=== PATIENT | female | born 2000 | race Caucasian/White ===

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

== ENCOUNTER 2024-02-01 09:28 | Outpatient (CLI) | payer BC, SELFPAY ==
--- NOTE | 2024-02-01 09:15 | RT.EKG_ITS ---
APPROVED REPORT Exam: Resting ECG Reason for Exam: New patient Patient Location: O HR:64 bpm ECG Measurements Heart Rate 64 AXIS ID 168 P 25 QRSd 94 QRS 13 QT 411 T 19 QTc 424 Conclusion Sinus rhythm...normal P axis, V-rate 50- 99 Baseline wander in lead(s) V4 Normal Electrocardiogram
== END 2024-02-01 09:29 | disposition home or self-care (01) ==
LOC: DI.CM 09:29
PROVIDERS: PCP Nurse Practitioner Family; Visit Provider Nurse Practitioner Family
DX: F90.8 Attention-deficit hyperactivity disorder, other type (principal)
CPT/HCPCS: 93010

== ENCOUNTER 2024-02-01 12:05 | Outpatient (REF) | payer BC, SELFPAY ==
--- NOTE | 2024-02-01 09:00 | PAPFT_PTH ---
PATIENT: Parisa Price LOC: [facility] U#:[id number] AGE/SX: 24/F ROOM: RE02/01/[address]: Mauricio Atwood DNP : 2000 BED: DIS: 02/01/2024 SPEC #: [id number] RECD: 02/01/24 13:43 STATUS: TYRONE QUINONEZ #: [id number] IVANA: 02/01/24 09:[address]: Mauricio Grigsby DEPT: [facility] Cytology RECD BY: Akila Gaitan Tissues: 1 - CX/ENDOCX FOR PAP SMEARS Procedures: PAP THIN PREP/[facility] Screening Comments: [id number]
[2024-02-01 21:12] LABS: ALT 38 U/L (14-59); AST 14 U/L (15-37); Albumin 4.1 g/dL (3.4-5.0); Alkaline Phosphatase 63 U/L (46-116); Anion Gap 11.7 mmol/L (3-11); BUN 7 mg/dL (7-18); CO2 24.3 mmol/L (21.0-32.0); CREATININE 0.8 mg/dL (0.55-1.02); Calcium 8.8 mg/dL (8.5-10.1); Chloride 104 mmol/L (98-107); Estimated GFR 106.77 (mL/min/1.73m2); Glucose 95 mg/dL (74-106); Potassium 4.1 mmol/L (3.5-5.1); Sodium 140 mmol/L (136-145); Total Protein 7.5 g/dL (6.4-8.2)
[2024-02-03 09:07] LABS: HIV-1/2 Ag & Ab Screen Negative (Negative)
[2024-02-03 09:18] LABS: Hepatitis C Ab w Rflx HCV PCR Negative (Negative)
== END 2024-02-01 12:06 | disposition home or self-care (01) ==
LOC: LBN 12:05
PROVIDERS: PCP Nurse Practitioner Family; Visit Provider Nurse Practitioner Family
DX: R53.83 Other fatigue (principal); F90.9 Attention-deficit hyperactivity disorder, unspecified type; Z13.1 Encounter for screening for diabetes mellitus; Z11.59 Encounter for screening for other viral diseases; Z11.4 Encounter for screening for human immunodeficiency virus [HIV]; Z12.4 Encounter for screening for malignant neoplasm of cervix
CPT/HCPCS: 80053; 86803; 87389; 88142

== ENCOUNTER 2024-04-03 11:41 | Outpatient (REF) | payer BC, SELFPAY ==
[2024-04-04 14:27] LABS: Chlamydia Result Negative (Negative); GC Result Negative (Negative)
== END 2024-04-03 11:42 | disposition home or self-care (01) ==
LOC: LBN 11:41
PROVIDERS: PCP Nurse Practitioner Family; Visit Provider Physician Assistant
DX: J02.9 Acute pharyngitis, unspecified (principal); Z11.3 Encounter for screening for infections with a predominantly sexual mode of transmission
CPT/HCPCS: 87491; 87591; 87070

== ENCOUNTER 2024-04-10 22:03 | Outpatient (REF) | payer BC, SELFPAY | END 2024-04-10 22:04 | disposition home or self-care (01) | LOC: LBN 22:03 | PROVIDERS: PCP Nurse Practitioner Family; Visit Provider Nurse Practitioner Family | DX: J03.90 Acute tonsillitis, unspecified (principal); J02.9 Acute pharyngitis, unspecified | CPT/HCPCS: 87070 ==

== ENCOUNTER 2024-06-15 15:58 | Outpatient (REF) | payer BC, SELFPAY ==
[2024-06-17 09:18] LABS: HIV-1/2 Ag & Ab Screen Negative (Negative)
[2024-06-18 10:36] LABS: Hepatitis A Antibody IgM Negative (Negative); Hepatitis B Core Antibody Negative (Negative); Hepatitis B surface Ag Negative (Negative); Hepatitis C Ab w Rflx HCV PCR Negative (Negative)
[2024-06-18 11:07] LABS: Syphilis Serology (RPR) Negative (Negative)
[2024-06-18 12:04] LABS: Chlamydia Result Negative (Negative); GC Result Negative (Negative)
== END 2024-06-15 15:59 | disposition home or self-care (01) ==
LOC: NCHCN 15:58
PROVIDERS: PCP Nurse Practitioner Family; Visit Provider Physician Assistant
DX: Z11.3 Encounter for screening for infections with a predominantly sexual mode of transmission (principal)
CPT/HCPCS: 86704; 86709; 86803; 87340; 87389; 87491; 87591; 86592; 87480; 87510; 87660

== ENCOUNTER 2024-06-16 12:57 | Outpatient (REF) | payer BC, SELFPAY | END 2024-06-16 12:58 | disposition home or self-care (01) | LOC: LBN 12:57 | PROVIDERS: PCP Nurse Practitioner Family; Visit Provider Physician Assistant | DX: A64 Unspecified sexually transmitted disease (principal); Z11.3 Encounter for screening for infections with a predominantly sexual mode of transmission | CPT/HCPCS: 87480; 87510; 87660 ==

== ENCOUNTER 2025-01-25 11:26 | Outpatient (REF) | payer BC, SELFPAY | END 2025-01-25 11:27 | disposition home or self-care (01) | LOC: LBN 11:26 | PROVIDERS: PCP Nurse Practitioner Family; Visit Provider Physician Assistant | DX: L72.9 Follicular cyst of the skin and subcutaneous tissue, unspecified (principal) | CPT/HCPCS: 87070; 87205 ==

== ENCOUNTER 2025-02-14 21:42 | Outpatient (REF) | payer BC, SELFPAY ==
[2025-02-15 17:17] LABS: HIV-1/2 Ag & Ab Screen Negative (Negative)
[2025-02-15 17:20] LABS: Hepatitis C Ab w Rflx HCV PCR Negative (Negative)
[2025-02-18 09:39] LABS: Syphilis Serology (RPR) Negative (Negative)
[2025-02-19 13:20] LABS: Chlamydia Result Invalid (Negative); GC Result Invalid (Negative)
== END 2025-02-14 21:43 | disposition home or self-care (01) ==
LOC: LBN 21:42
PROVIDERS: PCP Nurse Practitioner Family; Visit Provider Physician Assistant Medical
DX: N89.8 Other specified noninflammatory disorders of vagina (principal); Z11.3 Encounter for screening for infections with a predominantly sexual mode of transmission
CPT/HCPCS: 86803; 87389; 87491; 87591; 86592; 87480; 87510; 87660